=== PATIENT | male | born 1965 | race Caucasian/White ===

== ENCOUNTER 2022-08-20 14:33 | Emergency (ER) | payer MEDICARE, MEDICAID, SELFPAY ==
[2022-08-20 14:51] VITALS: BP 128/79; PULSE 86; RESP 20; TEMP 36.6; O2SAT 95; BMI 37.3
--- NOTE | 2022-08-20 14:56 | DI.RAD.S_ITS ---
PROCEDURE: XR CHEST 2V INDICATIONS: h/o rib rx 48 hrs ago, now feels worse TECHNIQUE: 2 views of the chest were acquired. COMPARISON: None. FINDINGS: Surgical changes and devices: None. Lungs and pleura: Mild bibasilar atelectasis. No pneumothorax Mediastinum: Mediastinal contours are normal. Heart size is normal. Bones and chest wall: No suspicious bony abnormalities. Soft tissues appear unremarkable. IMPRESSION: Mild bibasilar atelectasis. No pneumothorax Approved by: Reagan Weeks M.D. on 08/20/2022 at 15:12
--- NOTE | 2022-08-20 15:38 | PC.NURSE ---
Rounding and found pt bed to be high, at this nurse upper waist level. I went to lower and and pt stopped me saying he preferred it high so he could get in and out of bed. I discussed fall risk with him as he does not want any side rails. Pt states he knows he could fall but insists on bed being high. Asked to call for assistance if he would like to transfer, call alonzo in use w/ return demonstration of use. Friend is in the room.
[2022-08-20 15:42] VITALS: BP 127/76; PULSE 75; O2SAT 96
--- NOTE | 2022-08-20 16:16 | ED_ITS ---
HPI - General Adult General Chief complaint: Shortness of Breath/Dyspnea Stated complaint: UPPER BODY DISCOMFOR,ABD PAIN,SOB Time Seen by Provider: 08/20/22 15:36 Source: patient Mode of arrival: Ambulatory Limitations: no limitations History of Present Illness HPI narrative: Patient is a 57-year-old male who is here for evaluation of right-sided rib discomfort. Two days ago patient sustained an injury to his right ribs after he slipped and landed on his right side. He went to an outside emergency department. Had rib x-rays performed. It was found that he had a minimally displaced right 6th posterior rib fracture. He was sent home on pain medication. Since that time he has had continued right-sided discomfort. He was told to come back if his symptoms worsen. Is specifically worse with coughing. He denies any fevers. Review of Systems Constitutional Constitutional: Reports system reviewed and no additional complaints, except as documented Respiratory Respiratory: Reports system reviewed and no additional complaints, except as documented Gastrointestinal Gastrointestinal: Reports abdominal pain, Denies nausea and Denies vomiting Integumentary/Breasts Skin/Breast: Reports system reviewed and no additional complaints, except as documented Neurologic Neurologic: Reports system reviewed and no additional complaints, except as documented Patient History Social History Smoking Status: Current every day smoker Smoking Status: Current every day smoker Substance Use Type: marijuana Exam Initial Vital Signs Initial Vital Signs: Vital Signs Temperature 97.9 F 08/20/22 14:51 Pulse Rate 86 08/20/22 14:51 Respiratory Rate 20 08/20/22 14:51 Blood Pressure 128/79 08/20/22 14:51 Pulse Oximetry 95 08/20/22 14:51 Oxygen Delivery Method 08/20/22 14:51 HENAR Head: normal to inspection and normocephalic Chest Other: Right-sided anterior and posterior chest wall discomfort. Resp Effort & Inspection: normal respiratory effort Auscultation: clear to auscultation bilaterally Cardio Rate: regular rate GI Other: Right lower chest wall discomfort Skin General: no rashes or lesions noted Neuro General: patient alert, patient awake and moves all extremities Extrem General: normal to inspection and capillary refill normal Psych Appearance: grossly normal Course Orders Ordered: ED Orders 08/20/22 14:56 Chest [XR chest 2V] Stat Vital Signs Vital signs: Vital Signs - 8 hr 08/20/22 14:51 Temperature 97.9 F Pulse Rate 86 Respiratory Rate 20 Blood Pressure 128/79 Pulse Oximetry 95 Oxygen Delivery Method Room Air Medical Decision Making Imaging Data Chest x-ray: Radiologist's Impression: [address] [address] XRay Report Signed Patient: Freddy Way MR#: [id number] : 1965 Acct:[id number] Age/Sex: 57 / M Date of Service: 08/20/22 Loc: ED Accession Number: [id number] ?? Procedure: XR chest 2V Ordering Provider: Jorge Alberto Snow D.O. PROCEDURE:? XR CHEST 2V ? INDICATIONS:? h/o rib rx 48 hrs ago, now feels worse ? TECHNIQUE:? 2 views of the chest were acquired.? ? COMPARISON:? None. ? FINDINGS:? ? Surgical changes and devices:? None.? ? Lungs and pleura:? Mild bibasilar atelectasis.? No pneumothorax ? Mediastinum:? Mediastinal contours are normal.? Heart size is normal.? ? Bones and chest wall:? No suspicious bony abnormalities.? Soft tissues appear unremarkable.? ? IMPRESSION:? Mild bibasilar atelectasis.? No pneumothorax ? ? ? Approved by: Reagan Weeks M.D. on 08/20/2022 at 15:12? MDM Narrative Medical decision making narrative: No respiratory distress. Chest x-ray shows no signs of pneumonia. He also has anterior lower chest wall discomfort that is new today. This is above his abdomen and I have low suspicion for intra-abdominal injury. He will continue with his pain medication and also time for the rib fracture to heal. No indication for antibiotics. He was given return precautions. He expressed understanding and agreement. Discharge Plan Departure Patient Disposition: Home Clinical Impression: Fracture, rib Instructions: DI for Rib Fracture Activity Restrictions/Additional Instructions: Use the incentive spirometer as directed. It is important that you occasionally take deep breaths and return to the emergency department if your symptoms worsen or if you develop fevers or shortness of breath. Referrals: Michelet Reddy MD [Primary Care Provider] -
[2022-08-20 16:55] VITALS: PULSE 70; O2SAT 94
[2022-08-20 16:56] VITALS: BP 141/73; PULSE 75; O2SAT 93
== END 2022-08-20 17:00 | disposition home or self-care (01) ==
PROVIDERS: Emergency Provider Emergency Medicine; PCP Family Medicine
DX: S22.31XA Fracture of one rib, right side, initial encounter for closed fracture (principal); W01.0XXA Fall on same level from slipping, tripping and stumbling without subsequent striking against object, initial encounter
CPT/HCPCS: 71046; 99281; 99283

== ENCOUNTER 2023-09-16 09:35 | Emergency (ER) | payer MEDICARE, MEDICAID, SELFPAY ==
[2023-09-16 09:46] VITALS: BP 131/60; PULSE 86; RESP 16; TEMP 36.3; O2SAT 95; BMI 32.8
[2023-09-16 10:08] LABS: Strep Grp A by PCR Rapid Negative (Negative)
--- NOTE | 2023-09-16 10:08 | ED.GENADULT ---
HPI - General Adult General Chief complaint: Upper Respiratory Symptoms Stated complaint: fever, throat pain Time Seen by Provider: 09/16/23 09:49 Source: patient Mode of arrival: Ambulatory Limitations: no limitations History of Present Illness HPI narrative: 58-year-old male. A couple days of subjective fevers, sore throat, cough, painful swallowing, sinus congestion. No skin rashes. No nausea vomiting. No problems breathing. Has not tried anything for symptoms prior to arrival. Review of Systems Constitutional Constitutional: Reports system reviewed and no additional complaints, except as documented ENT Ears, Nose, Mouth, and Throat: Reports system reviewed and no additional complaints, except as documented Respiratory Respiratory: Reports system reviewed and no additional complaints, except as documented Integumentary/Breasts Skin/Breast: Reports system reviewed and no additional complaints, except as documented Allergic/Immunologic Allergic/Immunologic: Reports system reviewed and no additional complaints, except as documented Patient History Social History Smoking Status: Current every day smoker Smoking Status: Current every day smoker Substance Use Type: marijuana Exam Initial Vital Signs Initial Vital Signs: Vital Signs Temperature 97.4 F L 09/16/23 09:46 Pulse Rate 86 09/16/23 09:46 Respiratory Rate 16 09/16/23 09:46 Blood Pressure 131/60 09/16/23 09:46 Pulse Oximetry 95 09/16/23 09:46 Oxygen Delivery Method Room Air 09/16/23 09:46 HENCA Head: normal to inspection and normocephalic Ears: TM's normal bilaterally Mouth: oral mucosae normal and moist mucous membranes Throat: uvula midline and posterior oropharynx abnormal erythema Resp Effort & Inspection: normal respiratory effort Auscultation: clear to auscultation bilaterally Cardio Rate: regular rate Neuro General: patient alert and patient awake Course Orders Ordered: ED Orders 09/16/23 09:51 Covid-19 + FLU A/B + RSV - PCR Stat 09/16/23 09:55 Strep Grp A by PCR Rapid Stat Throat Culture Stat Vital Signs Vital signs: Vital Signs - 8 hr 09/16/23 09:46 Temperature 97.4 F L Pulse Rate 86 Respiratory Rate 16 Blood Pressure 131/60 Pulse Oximetry 95 Oxygen Delivery Method Room Air Medical Decision Making Lab Data Lab results reviewed: Yes I reviewed the patient's lab results. Labs: Lab Results 09/16/23 09/16/23 Range/Units 09:51 09:55 SARS-CoV-2 (PCR) Negative (Negative) Influenza A (RT-PCR) Flu a negative (NEGATIVE) Influenza B (RT-PCR) Flu b negative (NEGATIVE) RSV (PCR) Negative (Negative) Group A Strep (PCR) Negative (Negative) MDM Narrative Medical decision making narrative: No respiratory distress, tolerating secretions, low suspicion for peritonsillar abscess/retropharyngeal abscess or foreign body. COVID flu RSV negative. Strep test negative. Culture pending. Will wait for culture before starting any antibiotics. Discussed [id number] treatments the patient could try at home. He was given return precautions. He expressed understanding and agreement. Discharge Plan Departure Patient Disposition: Home Clinical Impression: Pharyngitis, Upper respiratory infection Instructions: Sore Throat, DI for Viral Upper Respiratory Infection -- Adult Activity Restrictions/Additional Instructions: I would recommend some [id number] decongestants or even Claritin or Zyrtec. You can try other sore throat medicine such as Cepacol drops and Chloraseptic sprays. You can purchase these [id number] as well. There was a throat culture pending and we will contact you if we need to start any antibiotics. Return to the emergency department for new symptoms. Referrals: Michelet Reddy MD [Primary Care Provider] - Stand Alone Forms: Patient Portal/API
[2023-09-16 10:40] LABS: COVID-19 CEPHEID 4-PLEX PCR Negative (Negative); Influenza A - CEPHEID Flu A NEGATIVE (NEGATIVE); Influenza B - CEPHEID Flu B NEGATIVE (NEGATIVE); Respiratory Syncytial Virus Negative (Negative)
--- NOTE | 2023-09-16 10:51 | PC.NURSE ---
Dr. steele at bedside w/ patient
== END 2023-09-16 11:00 | disposition home or self-care (01) ==
PROVIDERS: Emergency Provider Emergency Medicine; PCP Family Medicine
DX: J02.9 Acute pharyngitis, unspecified (principal)
CPT/HCPCS: 0241U; 87070; 87651; 99281; 99283